=== PATIENT | female | born 1990 | race Caucasian/White ===

== ENCOUNTER → 2017-05-24 | Outpatient (CLI) | payer SELFPAY ==
[~2017-05-24] MED LIST: HYDR-4309 PO
--- NOTE | 2017-05-28 11:09 | RADIOLOGY IMAGING REPORT ---
FACILITY: PATIENT NAME: HEATHER AMOS : [id number] MR: [id number] V: [id number] EXAM DATE: ORDERING PHYSICIAN: ELIZABETH CONDE TECHNOLOGIST: Moni Stevenson PROCEDURE:US BILATERAL BREAST COMPARISON:None. INDICATIONS:BILAT NIPPLE DISCHARGE/RIGHT SIDED WHITE DISCHARGE FOLLOWED BY BLOOD & LEFT NIPPLE CLEAR DISCHARGE. FINDINGS: Sonographic imaging was performed of both breasts revealing no sonographic abnormality other than mildly prominent ducts in the right retroareolar region. Today's bilateral mammogram revealed no abnormality, therefore clinical follow up recommended. DIAGNOSTIC CATEGORY 2--BENIGN FINDING. RECOMMENDATIONS: CLINICAL EVALUATION. IMPRESSION: BIRADS 2: Benign finding. Dictated by: Kaylee Pardo M.D. on 05/27/2017 at 16:59 Transcribed by: DORIS on 05/28/2017 at 8:42 Approved by: Kaylee Pardo M.D. on 05/28/2017 at 11:08 [facility]
--- NOTE | 2017-05-28 11:09 | RADIOLOGY IMAGING REPORT ---
FACILITY: [facility] PATIENT NAME: HEATHER AMOS : [id number] MR: [id number] V: [id number] EXAM DATE: ORDERING PHYSICIAN: ELIZABETH CONDE TECHNOLOGIST: Sania Haile PROCEDURE:BILATERAL DIAGNOSTIC DIGITAL MAMMOGRAM WITH CAD ASSISTED INTERPRETATION & 3D TOMOSYNTHESIS COMPARISON:None. INDICATIONS:BILAT NIPPLE DISCHARGE/BLOODY RIGHT NIPPLE DISCHARGE & CLEAR LEFT NIPPLE DISCHARGE. FINDINGS: Moderately dense heterogeneous fibroglandular tissue is seen throughout the breasts. There is no demonstration of malignant appearing mass, malignant appearing calcification or other secondary sign of malignancy in either breast. DIAGNOSTIC CATEGORY 2--BENIGN FINDING. RECOMMENDATIONS: CLINICAL EVALUATION. IMPRESSION: BIRADS 2: Benign finding. No significant abnormality is seen to account for patient's bloody right nipple discharge, therefore clinical follow up recommended. Dictated by: Kaylee Pardo M.D. on 05/27/2017 at 17:01 Transcribed by: DORIS on 05/28/2017 at 8:38 Approved by: Kaylee Pardo M.D. on 05/28/2017 at 11:08 [facility]
== END ==
LOC: US 14:54
PROVIDERS: ATTEND Student in an Organized Health Care Education/Training Program
DX: N60.41 Mammary duct ectasia of right breast (principal)
CPT/HCPCS: 36415; 76641; 77062; 77066; 84146; 84443

== ENCOUNTER → 2017-06-10 | Outpatient (REF) ==
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
== END ==
LOC: RAD 09:24
PROVIDERS: ATTEND Orthopaedic Surgery Orthopaedic Surgery of the Spine
DX: M25.531 Pain in right wrist (principal)

== ENCOUNTER 2018-02-14 18:58 | Emergency (ER) | payer SELFPAY ==
[~2018-02-14 18:58] MED LIST changes: -HYDR-4309 PO; +HYDR-653 PO
[2018-02-14 19:03] VITALS: BP 118/74
--- NOTE | 2018-02-14 19:07 | ER Report ---
History and Physical Time Seen By MD: 19:08 Hx. of Stated Complaint: FULL BODY PAIN THAT STARTED THIS AFTERNOON. HAS HAPPENED BEFORE . UNKNOWN CAUSE. USUALLY TAKES OVER THE COUNTER MEDS BUT THEY AREN'T WORKING. HAS AN EAR INFECTION SHE'S TREATING AT HOME HPI/ROS CHIEF COMPLAINT: CHIEF COMPLAINT: Diffuse pain, sore throat HISTORY OF PRESENT ILLNESS: This is a 27-year-old female. She is aching all over, skin, joints, muscles. She has had this happen a few times in the past. She has a history of endocarditis and whenever she gets a strep infection this seems to happen. She does have a sore throat and has had some problems with her ears recently. Low-grade fevers. No problems or shortness of breath or chest pain at this time. No nausea or vomiting, no problem with bowel or bladder function. No rashes. Her is also sick with a sore throat. Allergies: Coded Allergies: Penicillins (Verified Allergy, Mild, HIVES, 02/14/18) Sulfa (Sulfonamide Antibiotics) (Verified Allergy, Mild, HIVES, 02/14/18) Home Meds Active Scripts Methylprednisolone (METHYLPREDNISOLONE) 4 Mg Tab.ds.pk, 4 MG PO DIRECTED, #1 PACK 0 Refills Prov:YAZ ORDONEZ MD 02/14/18 Hydrocodone Bit/Acetaminophen (HYDROCODON-ACETAMINOPHEN 5-325) 1 Each Tablet, 1 EACH PO Q4H PRN for PAIN, #12 TAB 0 Refills Prov:YAZ ORDONEZ MD 02/14/18 Azithromycin (ZITHROMAX) 250 Mg Tablet, 1 TAB PO QDAY for 4 Days, #4 TAB 0 Refills Prov:YAZ ORDONEZ MD 02/14/18 Reviewed Nurses Notes: Yes Hx Smoking: Yes (1 PACK/ 2-3 MONTHS) Smoking Status: Light Tobacco Smoker Hx Substance Use Disorder: No Constitutional Vital Sign - Last 24 Hours 02/14/18 19:03 Temp 97.9 Pulse 97 Resp 18 B/P (MAP) 118/74 Pulse Ox 98 O2 Delivery Room Air Physical Exam General Appearance: The patient is alert, has no immediate need for airway protection and no current signs of toxicity. She does have acute distress because of the ongoing pain Eyes: Pupils equal and round no injection. ENT: Normal oral mucosa. Moist mucous membranes. Posterior oropharynx is red with exudates and hypertrophy. She does have some submandibular lymphadenopathy. This is tender. Tympanic membranes are normal. Neck: Neck is supple. Respiratory: Chest is non tender, lungs are clear to auscultation. Cardiac: regular rate and rhythm Gastrointestinal: Abdomen is soft and non tender, no masses, bowel sounds normal. Musculoskeletal: Extremities have full range of motion. She does have diffuse tenderness with palpation throughout the body. Skin: No rashes or lesions. DIFFERENTIAL DIAGNOSIS: After history and physical exam differential diagnosis was considered for suspected strep Medical Decision Making Data Points Laboratory Hematology Test 02/14/18 19:17 Group A Streptococcus Screen Positive (NEGATIVE) Chemistry Test 02/14/18 19:17 Group A Streptococcus Screen Positive (NEGATIVE) ED Course/Re-evaluation ED Course Strep test is positive. We will treat with a azithromycin because of her allergy to penicillin and sulfa. We'll also give her pain medicine to help with the pain. Decision to Disposition Date: Feb 14, 2018 Decision to Disposition Time: 19:52 Depart Departure Latest Vital Signs Vital Signs Date Time Temp Pulse Resp B/P (MAP) Pulse Ox O2 Delivery O2 Flow Rate FiO2 02/14/18 19:03 97.9 97 18 118/74 98 Room Air Impression: Primary Impression: Strep pharyngitis Additional Impression: Myalgia Condition: Improved Disposition: HOME OR SELF-CARE New Scripts Methylprednisolone (METHYLPREDNISOLONE) 4 Mg Tab.ds.pk 4 MG PO DIRECTED, #1 PACK 0 Refills Prov: YAZ ORDONEZ MD 02/14/18 Hydrocodone Bit/Acetaminophen (HYDROCODON-ACETAMINOPHEN 5-325) 1 Each Tablet 1 EACH PO Q4H PRN for PAIN, #12 TAB 0 Refills Prov: YAZ ORDONEZ MD 02/14/18 Azithromycin (ZITHROMAX) 250 Mg Tablet 1 TAB PO QDAY for 4 Days, #4 TAB 0 Refills Prov: YAZ ORDONEZ MD 02/14/18 Patient Instructions: Pharyngitis (ED), Strep Throat (ED) Additional Instructions: Take one dose of the steroid methylprednisolone 4mg now and one prior to bedtime tonight, then start the Medrol dosepack tomorrow morning. Take Lortab 5/325, one every 4 hours as needed for severe pain. Take Azithromycin 250mg once a day for 4 days. Off work tomorrow with increased fluid and rest. Problem Qualifiers YAZ ORODNEZ MD Feb 14, 2018 19:07
[2018-02-14] MEDS ORDERED: KETOROLAC 30 MG/ML VIAL IVP ONE (19:15)
[2018-02-14] MEDS ORDERED: APAP/HYDROCODONE 325/5 TAB PO ONE (19:15)
[2018-02-14] MEDS ORDERED: KETOROLAC TROM 10MG TAB PO ONE (19:35)
[2018-02-14] MEDS ORDERED: methylPREDNIS 4 MG TAB PO SCH (19:50)
[2018-02-14] MEDS ORDERED: ACET/HYDROC 5/325MG TH ER ONLY 2 TAB/BOTTLE PO ONE (19:50)
[2018-02-14] MEDS ORDERED: AZITHROMYCIN 250 MG TAB PO ONE (19:50)
[2018-02-14] MEDS ORDERED: METH4TAB66 PO (19:53)
[2018-02-14] MEDS ORDERED: LOR5/325 PO (19:53)
[2018-02-14] MEDS ORDERED: AZIT-1 PO (19:53)
== END 2018-02-14 20:05 | disposition home or self-care (01) ==
LOC: ER 19:03
DX: J02.0 Streptococcal pharyngitis (principal); M79.10 Myalgia, unspecified site
CPT/HCPCS: 87081; 87880; 99283; J7509; Q0144

== ENCOUNTER 2018-02-22 09:29 | Emergency (ER) | payer SELFPAY ==
[~2018-02-22 09:29] MED LIST changes: +AZIT-1 PO; +LOR5/325 PO; +METH4TAB66 PO
--- NOTE | 2018-02-22 09:38 | ER Report ---
History and Physical Time Seen By MD: 09:39 HPI/ROS 27-year-old otherwise healthy female presents to the emergency department with what she describes as her typical migraine headache. She called the ED earlier asking if she could come in for a work note. MASCORRO is her usual migraine MASCORRO. Not worse of life. No fever/chills. No meningismus. Remainder of the 14 system rev: Yes Allergies: Coded Allergies: Penicillins (Verified Allergy, Mild, HIVES, 02/14/18) Sulfa (Sulfonamide Antibiotics) (Verified Allergy, Mild, HIVES, 02/14/18) Home Meds Discontinued Scripts Methylprednisolone (METHYLPREDNISOLONE) 4 Mg Tab.ds.pk, 4 MG PO DIRECTED, #1 PACK 0 Refills Prov:YAZ ORDONEZ MD 02/14/18 Hydrocodone Bit/Acetaminophen (HYDROCODON-ACETAMINOPHEN 5-325) 1 Each Tablet, 1 EACH PO Q4H PRN for PAIN, #12 TAB 0 Refills Prov:YAZ ORDONEZ MD 02/14/18 Azithromycin (ZITHROMAX) 250 Mg Tablet, 1 TAB PO QDAY for 4 Days, #4 TAB 0 Refills Prov:YAZ ORDONEZ MD 02/14/18 Reviewed Nurses Notes: Yes Hx Smoking: Yes (1 PACK/ 2-3 MONTHS) Smoking Status: Light Tobacco Smoker Hx Substance Use Disorder: No Hx Alcohol Use: No Constitutional Vital Sign - Last 24 Hours 02/22/18 09:35 Temp 97.9 Pulse 68 Resp 16 B/P (MAP) 122/82 Pulse Ox 95 O2 Delivery Room Air Physical Exam General Appearance: The patient is alert, has no immediate need for airway protection and no current signs of toxicity. Eyes: Pupils equal and round no injection. Respiratory: Chest is non tender, lungs are clear to auscultation. Cardiac: regular rate and rhythm Gastrointestinal: Abdomen is soft and non tender, no masses, bowel sounds normal. Neck: no meningismus Extremities have full range of motion and are non tender. No rashes or lesions. DIFFERENTIAL DIAGNOSIS: After history and physical exam differential diagnosis was considered for headache including but not limited to subarachnoid hemorrhage, migraine headache, tension headache and infectious causes such as meningitis, pharyngitis and sinusitis. Medical Decision Making ED Course/Re-evaluation ED Course Uncomplicated migraine headache improved with IM Reglan and Toradol. Now worst headache of life. No fever chills or meningismus. No other URI symptoms. Will follow up with her primary care physician. Decision to Disposition Date: Feb 22, 2018 Decision to Disposition Time: 10:58 Depart Departure Latest Vital Signs Vital Signs Date Time Temp Pulse Resp B/P (MAP) Pulse Ox O2 Delivery O2 Flow Rate FiO2 02/22/18 09:35 97.9 68 16 122/82 95 Room Air Impression: Primary Impression: Headache Condition: Improved Disposition: HOME OR SELF-CARE Patient Instructions: Acute Headache (ED) Problem Qualifiers Primary Impression: Headache Headache type: unspecified Headache chronicity pattern: acute headache Intractability: not intractable Qualified Codes: R51 - Headache JORDAN IBRAHIM MD Feb 22, 2018 09:38
[2018-02-22] MEDS ORDERED: KETOROLAC 30 MG/ML VIAL IM ONE (10:25)
[2018-02-22] MEDS ORDERED: METOCLOPRAMIDE 10 MG/2 ML SDV IM ONE (10:25)
[2018-02-22 10:30] VITALS: BP 118/79
== END 2018-02-22 11:06 | disposition home or self-care (01) ==
LOC: ER 09:59
DX: G43.909 Migraine, unspecified, not intractable, without status migrainosus (principal)
CPT/HCPCS: 96372; 99283; J1885; J2765

== ENCOUNTER 2018-04-18 18:16 | Emergency (ER) | payer SELFPAY ==
[~2018-04-18 18:16] MED LIST changes: +OSE75 PO
--- NOTE | 2018-04-18 18:32 | ER Report ---
History and Physical Time Seen By MD: 18:28 Hx. of Stated Complaint: PT REPORTS SORE THROAT, REPORTS DIFFICULTY EATING. PT DENIES TAKING ANY TYLENOL OR MOTRIN TODAY. HPI/ROS CHIEF COMPLAINT: Sore throat and influenza HISTORY OF PRESENT ILLNESS: This is a 27-year-old female who presents to the emergency room for influenza. Patient was seen and evaluated yesterday, diagnosed with influenza, given Tamiflu but continues to have a sore throat and flu symptoms. Patient has had minimal intake as she does have a sore throat. Patient also states she's had fatigue. Achiness and chills. No other unusual findings. REVIEW OF SYSTEMS: Constitutional: As above. Eyes: No discharge. ENT: As above. Cardiovascular: No chest pain, no palpitations. Respiratory: No cough, no shortness of breath. Gastrointestinal: No abdominal pain, no vomiting. Genitourinary: No hematuria. Musculoskeletal: No back pain. Skin: No rashes. Neurological: No headache. Allergies: Coded Allergies: Penicillins (Verified Allergy, Mild, HIVES, 04/18/18) Sulfa (Sulfonamide Antibiotics) (Verified Allergy, Mild, HIVES, 04/18/18) Home Meds Active Scripts Benzonatate (BENZONATATE) 200 Mg Capsule, 200 MG PO TID PRN for COUGH, #15 CAP Prov:GAIL REAGAN DIRECTOR PRINT- 04/18/18 Oseltamivir Phosphate (TAMIFLU) 75 Mg Cap, 75 MG PO BID, #10 CAP Prov:LESLY CARDENAS DO 04/17/18 Past Medical/Surgical History The patient has a past medical and surgical history of endocarditis and several congenital defects, arthritis, wears glasses, depression, anxiety, PTSD, previous suicide attempt, cardiac stents at age 18 months at 11 years old. Reviewed Nurses Notes: Yes Hx Smoking: Yes (1 PACK/ 2-3 MONTHS) Smoking Status: Current: Some Days Smoker, Light Tobacco Smoker Hx Substance Use Disorder: No Hx Alcohol Use: No Constitutional Vital Sign - Last 24 Hours 04/18/18 04/18/18 04/18/18 04/18/18 18:20 18:21 18:30 18:31 Temp 101.7 Pulse 104 102 Resp 16 B/P (MAP) 122/70 122/70 (87) 129/76 (93) Pulse Ox 92 91 O2 Delivery Room Air 04/18/18 04/18/18 04/18/18 04/18/18 18:46 19:00 19:01 19:16 Pulse 112 96 94 B/P (MAP) 103/79 (87) Pulse Ox 89 92 91 04/18/18 19:26 B/P (MAP) 113/75 (88) Physical Exam General Appearance: The patient is alert, has no immediate need for airway protection and no signs of toxicity. Eyes: Pupils equal and round no pallor or injection. ENT, Mouth: Mucous membranes are moist, erythema and mild tonsillar hypertrophy to the posterior oropharynx. Respiratory: There are no retractions, lungs are clear to auscultation. Cardiovascular: Regular rate and rhythm, no murmurs, clicks or rubs. Gastrointestinal: Abdomen is soft and non tender, no masses, bowel sounds normal. Neurological: Alert and oriented 4. Moving all extremities. Following all commands. No focal neuro deficits. Skin: Warm and dry, no rashes. Musculoskeletal: Neck is supple non tender. Extremities are nontender, nonswollen and have full range of motion. DIFFERENTIAL DIAGNOSIS: After history and physical exam differential diagnosis was considered for influenza. Medical Decision Making ED Course/Re-evaluation ED Course The patient was admitted to room. A history and physical were obtained. Differential diagnoses were considered. Patient was requesting a strep throat swab she does have a sore throat, she did have a throat swab yesterday as well as a confirmatory diagnosis of influenza and did tell the patient that this is likely influenza and she'll need to drink plenty of fluids, take [id number] medications such as Tylenol or ibuprofen for her discomfort. I did send her home with a prescription for Magic mouthwash, she was also given Magic mouthwash while in the emergency department, she was also given 800 mg ibuprofen. She was instructed to use Magic mouthwash as needed, I also sent her home with a prescription for benzonatate. The patient had no other questions or concerns at this time and was discharged home. Decision to Disposition Date: Apr 18, 2018 Decision to Disposition Time: 19:25 Depart Departure Latest Vital Signs Vital Signs Date Time Temp Pulse Resp B/P (MAP) Pulse Ox O2 Delivery O2 Flow Rate FiO2 04/18/18 19:26 113/75 (88) 04/18/18 19:16 94 91 04/18/18 18:20 101.7 16 Room Air Impression: Primary Impression: Influenza A Additional Impression: Sore throat Condition: Improved Disposition: HOME OR SELF-CARE New Scripts Benzonatate (BENZONATATE) 200 Mg Capsule 200 MG PO TID PRN for COUGH, #15 CAP Prov: GAIL REAGAN 04/18/18 Patient Instructions: Influenza (ED) Additional Instructions: Drink plenty of water. Use the Magic mouthwash every 1-2 hours as needed for throat pain. Take ibuprofen or Tylenol as needed for aches and chills. Try otter-pops or frozen Popsicles for sore throat. Try the benzonatate for cough and sore throat. Also try 1 teaspoon of honey every 2-3 hours for sore throat. Return to the ER for any other concerns or worsening symptoms. Problem Qualifiers GAIL REAGAN Apr 18, 2018 18:32
[2018-04-18] MEDS ORDERED: MAGIC MOUTHWASH 90 ML BTL PO PRN (18:55)
[2018-04-18] MEDS ORDERED: BENZ200C15 PO (19:00)
[2018-04-18] MEDS ORDERED: LIDOCAINE 2% VISC SLN 15ML UDC PO ONE (19:00)
[2018-04-18] MEDS ORDERED: IBUPROFEN 800 MG TAB PO ONE (19:05)
[2018-04-18] MEDS ORDERED: ONDANSETRON 4 MG ODT TH SL ONE (19:10)
[2018-04-18 19:26] VITALS: BP 113/75
== END 2018-04-18 19:39 | disposition home or self-care (01) ==
LOC: ER 18:35
DX: J11.1 Influenza due to unidentified influenza virus with other respiratory manifestations (principal); J02.9 Acute pharyngitis, unspecified
CPT/HCPCS: 99283; S0119

== ENCOUNTER 2018-07-20 05:32 | Emergency (ER) | payer SELFPAY ==
[~2018-07-20 05:32] MED LIST changes: +BENZ200C15 PO
--- NOTE | 2018-07-20 05:35 | ER Report ---
History and Physical Time Seen By MD: 05:34 HPI/ROS CHIEF COMPLAINT: Sore throat HISTORY OF PRESENT ILLNESS: 27-year-old female with a history of congenital heart disease and numerous stents. She is had a sore throat this morning. She is concerned that she gets strep throat, she will develop rheumatic heart disease. She would like a rapid strep test performed. She's had some postnasal drip. She's had an occasional cough. She's had no nausea or vomiting. She denies fever or chills. REVIEW OF SYSTEMS: Respiratory: No cough, no dyspnea. Cardiovascular: No chest pain, no palpitations. Gastrointestinal: No vomiting, no abdominal pain. Musculoskeletal: No back pain. Allergies: Coded Allergies: Penicillins (Verified Allergy, Mild, HIVES, 04/18/18) Sulfa (Sulfonamide Antibiotics) (Verified Allergy, Mild, HIVES, 04/18/18) Home Meds Discontinued Scripts Benzonatate (BENZONATATE) 200 Mg Capsule, 200 MG PO TID PRN for COUGH, #15 CAP Prov:GAIL REAGAN CRUSHER [employer] MICA-BC 04/18/18 Oseltamivir Phosphate (TAMIFLU) 75 Mg Cap, 75 MG PO BID, #10 CAP Prov:LESLY CARDENAS V DO 04/17/18 Past Medical/Surgical History The patient has a past medical and surgical history of endocarditis and several congenital defects, arthritis, wears glasses, depression, anxiety, PTSD, previous suicide attempt, cardiac stents at age 18 months at 11 years old. Reviewed Nurses Notes: Yes Old Medical Records Reviewed: Yes Hx Smoking: Yes (1 PACK/ 2-3 MONTHS) Smoking Status: Current: Some Days Smoker, Light Tobacco Smoker Hx Substance Use Disorder: No Hx Alcohol Use: No Constitutional Vital Sign - Last 24 Hours 07/20/18 05:36 Temp 97.9 Pulse 84 Resp 17 B/P (MAP) 111/73 Pulse Ox 93 O2 Delivery Room Air Physical Exam General Appearance: The patient is alert, has no immediate need for airway protection and no current signs of toxicity. Vital signs stable, afebrile HEENT: Pupils equal and round no injection. TMs normal, oropharynx with mild erythema, no exudate or petechiae no tonsillar hypertrophy Respiratory: Chest is non tender, lungs are clear to auscultation. Cardiac: regular rate and rhythm Gastrointestinal: Abdomen is soft and non tender, no masses, bowel sounds normal. Musculoskeletal: Neck: Neck is supple and non tender. Extremities have full range of motion and are non tender. Skin: No rashes or lesions. DIFFERENTIAL DIAGNOSIS: After history and physical exam differential diagnosis was considered for viral pharyngitis, streptococcal pharyngitis, postnasal drip, sinus infection Medical Decision Making Data Points Laboratory Hematology Test 07/20/18 05:47 Group A Streptococcus (PCR) Negative (NEGATIVE) Chemistry Test 07/20/18 05:47 Group A Streptococcus (PCR) Negative (NEGATIVE) ED Course/Re-evaluation ED Course Patient was admitted to an examination room. H&P was done. The differential diagnoses was considered. Patient with a history of congenital heart disease as well as endocarditis. She is concerned that if she contracts strep throat, she will develop rheumatic heart disease which will cause her great harm. She's had a sore throat for several hours and came in for evaluation. She's had no fever. She does have some sinus symptoms. A rapid strep test was performed which was negative. Patient's reassured and advised symptomatically treatment of her sore throat and upper respiratory infection. Decision to Disposition Date: Jul 20, 2018 Decision to Disposition Time: 05:57 Depart Departure Latest Vital Signs Vital Signs Date Time Temp Pulse Resp B/P (MAP) Pulse Ox O2 Delivery O2 Flow Rate FiO2 07/20/18 05:36 97.9 84 17 111/73 93 Room Air Impression: Primary Impression: Acute pharyngitis Condition: Improved Disposition: HOME OR SELF-CARE New Scripts No Active Prescriptions or Reported Meds Patient Instructions: Pharyngitis (ED) Problem Qualifiers Primary Impression: Acute pharyngitis Pharyngitis/tonsillitis etiology: unspecified etiology Qualified Codes: J02.9 - Acute pharyngitis, unspecified ORLANDO RAMIREZ DO Jul 20, 2018 05:34
[2018-07-20 05:36] VITALS: BP 111/73
== END 2018-07-20 06:48 | disposition home or self-care (01) ==
LOC: ER 05:44
DX: J02.9 Acute pharyngitis, unspecified (principal)
CPT/HCPCS: 87653; 99282

== ENCOUNTER 2018-10-10 15:01 | Emergency (ER) | payer SELFPAY ==
[2018-10-10 15:06] VITALS: BP 130/86
--- NOTE | 2018-10-10 15:11 | ER Report ---
History and Physical Time Seen By MD: 15:08 Hx. of Stated Complaint: RIGHT EAR PAIN SINCE THIS AM HPI/ROS CHIEF COMPLAINT: Right ear pain HISTORY OF PRESENT ILLNESS: 27-year-old female patient presents to emergency room with complaint of right ear pain. Patient states that she has been having pain since this morning. She states there is nothing significant pain better or worse. She denies having any fevers, chills, nausea, vomiting or diarrhea. Patient states she is not taking any medication for this. Patient states she does have a history of ear infections which will the development strep throat. She states she's had endocarditis as a child and is concerned that she has strep throat because untreated that she will again develop endocarditis and . She states that does not happen, she's been able to get it in time. Allergies: Coded Allergies: Penicillins (Verified Allergy, Mild, HIVES, 10/10/18) Sulfa (Sulfonamide Antibiotics) (Verified Allergy, Mild, HIVES, 10/10/18) Home Meds Active Scripts Doxycycline Hyclate (DOXYCYCLINE HYCLATE) 100 Mg Tablet, 100 MG PO BID, #14 TAB Prov:STARR PULIDO GENERAL REPAIR MECHANIC 10/10/18 Past Medical/Surgical History Patient has a past medical history of denervation of extremities, endocarditis, congenital defects 4, arthritis, depression, anxiety, PTSD, suicide attempt. Patient has a surgical history of cardiac and 2, stent at 18 months 11 years, biopsy of thigh. Reviewed Nurses Notes: Yes Hx Smoking: Yes (1 PACK/ 2-3 MONTHS) Smoking Status: Current: Some Days Smoker, Light Tobacco Smoker Hx Substance Use Disorder: No Hx Alcohol Use: No Constitutional Vital Sign - Last 24 Hours 10/10/18 15:06 Temp 97.6 Pulse 76 Resp 20 B/P (MAP) 130/86 Pulse Ox 97 O2 Delivery Room Air Physical Exam General appearance: Alert no distress. Respiratory: Chest is non tender, lungs are clear to auscultation. Cardiac: Regular rate and rhythm. ENT: Tympanic membranes are pearly-martini, auditory canals are patent, mucous membranes are moist. Right naris is erythematous, left is congested with mucus production. Patient has tenderness to the right frontal sinus. DIFFERENTIAL DIAGNOSIS: After history and physical exam differential diagnosis was considered for otitis media, upper respiratory infection, sinusitis. Medical Decision Making ED Course/Re-evaluation ED Course Patient was admitted and examined, history and physical were obtained. Differential diagnoses were considered. On examination lungs are clear, heart is regular, abdomen soft nontender. Patient does have no signs of infection and pearly-martini bilateral tympanic membranes. Patient did have congestion of the left nare, erythema of the right near. Patient had tenderness to the right frontal sinus. I believe that she has sinusitis which causing her pain. We'll go ahead and start her on doxycycline. She is to increase fluid intake, get plenty of rest. Patient verbalized understanding and agreement with plan. Decision to Disposition Date: Oct 10, 2018 Decision to Disposition Time: 15:20 Depart Departure Latest Vital Signs Vital Signs Date Time Temp Pulse Resp B/P (MAP) Pulse Ox O2 Delivery O2 Flow Rate FiO2 10/10/18 15:06 97.6 76 20 130/86 97 Room Air Impression: Primary Impression: Sinusitis Condition: Improved Disposition: HOME OR SELF-CARE New Scripts Doxycycline Hyclate (DOXYCYCLINE HYCLATE) 100 Mg Tablet 100 MG PO BID, #14 TAB Prov: STARR PULIDO 10/10/18 Patient Instructions: Sinusitis (ED) Additional Instructions: Increase fluid intake. Get plenty of rest. Follow up with your primary care provider in the next week. Return to the ER if condition worsens. Take Tylenol or Ibuprofen as needed for pain. Problem Qualifiers Primary Impression: Sinusitis Sinusitis location: pansinusitis Chronicity: acute Recurrence: non- recurrent Qualified Codes: J01.40 - Acute pansinusitis, unspecified STARR PULIDO Oct 10, 2018 15:11
[2018-10-10] MEDS ORDERED: DOXY-179 PO (15:24)
== END 2018-10-10 15:40 | disposition home or self-care (01) ==
LOC: ER 15:07
DX: J01.40 Acute pansinusitis, unspecified (principal)
CPT/HCPCS: 99281

== ENCOUNTER 2018-11-05 19:19 | Emergency (ER) | payer SELFPAY ==
[~2018-11-05 19:19] MED LIST changes: +DOXY-179 PO
[2018-11-05 19:45] VITALS: BP 113/74
--- NOTE | 2018-11-05 20:00 | ER Report ---
History and Physical Time Seen By MD: 19:20 Hx. of Stated Complaint: PAIN IN BOTH WRISTS FOR TWO WEEKS. DOES REPEPTATIVE MOTIONS AT WORK WITH HER HANDS EVERY DAY HPI/ROS CHIEF COMPLAINT: bilateral wrist pain HISTORY OF PRESENT ILLNESS: Patient is a 27 year old female c/o bilateral wrist pain that started 2 weeks ago and has progressively been getting worse. The pain is worse with typing and lifting boxes at work. Has tried taking Advil but this does not help the pain. Denies any trauma. Denies numbness or tingling. Allergies: Coded Allergies: Penicillins (Verified Allergy, Mild, HIVES, 11/05/18) Sulfa (Sulfonamide Antibiotics) (Verified Allergy, Mild, HIVES, 11/05/18) Home Meds Discontinued Scripts Doxycycline Hyclate (DOXYCYCLINE HYCLATE) 100 Mg Tablet, 100 MG PO BID, #14 TAB Prov:STARR PULIDO [employer] 10/10/18 Past Medical/Surgical History Past Medical history of Dennervation of extremities, endocarditis, congenital heart defects, arthritis knees, glasses No pertinent surgical history No pertinent family history Reviewed Nurses Notes: Yes Hx Smoking: Yes (1 PACK/ 2-3 MONTHS) Smoking Status: Current: Some Days Smoker, Light Tobacco Smoker Hx Substance Use Disorder: No Hx Alcohol Use: No Constitutional Vital Sign - Last 24 Hours 11/05/18 11/05/18 11/05/18 19:23 19:30 19:45 Temp 97.6 Pulse 70 68 Resp 20 B/P (MAP) 118/69 110/66 (81) 113/74 (87) Pulse Ox 97 97 O2 Delivery Room Air Physical Exam General appearance: Alert no distress. Respiratory: Chest is non tender, lungs are clear to auscultation. Cardiac: Regular rate and rhythm MSK: tenderness over central bilateral ventral wrists, + phallen's test, +Tinel's test, equal water tanker driver strength bilaterally, decreased resistive strength with wrist flexion bilaterally DIFFERENTIAL DIAGNOSIS: After history and physical exam differential diagnosis was considered for tendinitis, fracture, carpal tunnel. Medical Decision Making ED Course/Re-evaluation ED Course Patient presented to ED with bilateral wrist pain for the past 2 weeks. Progressively worsening and worse with typing at work. Denies numbness at night. Physical exam showed carpal bone tenderness as well as positive phallen's and Tinel's tests. No other acute abnormalities. Differential Diagnoses considered. Patient was told that she has carpal tunnel syndrome and understood her diagnosis. given bilateral wrist braces and instructed to wear them at night with IBU and tylenol PRN. Discharged in an improved condition. Decision to Disposition Date: Nov 05, 2018 Decision to Disposition Time: 19:56 Depart Departure Latest Vital Signs Vital Signs Date Time Temp Pulse Resp B/P (MAP) Pulse Ox O2 Delivery O2 Flow Rate FiO2 11/05/18 19:45 113/74 (87) 11/05/18 19:30 68 97 11/05/18 19:23 97.6 20 Room Air Impression: Primary Impression: Carpal tunnel syndrome on both sides Condition: Improved Disposition: HOME OR SELF-CARE New Scripts No Active Prescriptions or Reported Meds Departure Forms: Medications Reconciliation, Patient Portal Information, ER Transition Record Patient Instructions: Carpal Tunnel Syndrome Exercises (GEN) Additional Instructions: Wear wrist braces at night and during the day if it does not interfere with work, the more the better. Use Ibuporfen and Tylenol PRN for pain and inflammation. Ice, heat and rest from aggravating activities will also improve pain. Follow up with primary care physician. Return to ER if symptoms worsen. STARR PULIDO Nov 05, 2018 20:00
== END 2018-11-05 20:04 | disposition home or self-care (01) ==
LOC: ER 19:26
DX: G56.03 Carpal tunnel syndrome, bilateral upper limbs (principal)
CPT/HCPCS: 99281; L3908